=== PATIENT | female | born 1970 | race African-American/Black ===

== ENCOUNTER 2016-12-17 12:18 | Emergency (ER) | payer OTHER ==
[~2016-12-17] VITALS: Ht 170.2 cm; Wt 98.6 kg
[~2016-12-17 12:18] MED LIST: AFRIN,GENASAL D15 ML BOTH NARES; ANTIVERT25 MG PO; BENZONATATE100 MG PO; COLACE100 MG PO; DICLOFENAC SODI75 MG; FLAGYL500 MG; FLEXERIL10 MG PO; LEVAQUIN500 MG PO; LYRICA150 MG PO; MECLIZINE HCL25 MG PO; MELOXICAM7.5 MG PO; MOTRIN800 MG PO; NAPROSYN500 MG PO; NAPROXEN500 MG PO; NOHOMEMEDS; NORCO 5/3251 TABLET PO; OMEPRAZOLE40 M1 PO; PREDNISONE20 MG PO; PRILOSEC40 MG PO; PRINIVIL5 MG PO; ROBITUSSIN AC,T10 ML PO; TYLENOL REGULA325 MG PO; ULTRAM50 MG PO; VALIUM5 MG PO; VICODIN,LORT1 TABLET PO; ZANTAC150 MG PO; ZITHROMAX Z-PA250 MG PO; ZYRTEC10 M2 PO; naproxen
[2016-12-17] MEDS ORDERED: SUDAFED 12-HOU120 MG PO (12:49)
[2016-12-17 12:59] VITALS: BP 116/80
== END 2016-12-17 13:15 | disposition home or self-care (01) ==
LOC: EME 12:18
DX: J32.9 Chronic sinusitis, unspecified (principal); R05 Cough; I10 Essential (primary) hypertension
CPT/HCPCS: 99281; 99283

== ENCOUNTER 2017-08-10 14:05 | Emergency (ER) | payer OTHER ==
[~2017-08-10] VITALS: Ht 170.2 cm; Wt 99.4 kg
[~2017-08-10 14:05] MED LIST changes: +SUDAFED 12-HOU120 MG PO
[2017-08-10] MEDS ORDERED: AMOXICILLIN500 M1 PO (16:29)
[2017-08-10] MEDS ORDERED: MUCINEX1200 MG PO (16:29)
[2017-08-10 16:47] VITALS: BP 119/70
== END 2017-08-10 16:50 | disposition home or self-care (01) ==
LOC: EME 14:05
DX: J01.00 Acute maxillary sinusitis, unspecified (principal); I10 Essential (primary) hypertension; K21.9 Gastro-esophageal reflux disease without esophagitis
CPT/HCPCS: 99281; 99284

== ENCOUNTER 2017-12-23 01:37 | Emergency (ER) | payer OTHER ==
[~2017-12-23] VITALS: Ht 170.2 cm; Wt 93.8 kg
[~2017-12-23 01:37] MED LIST changes: +AMOXICILLIN500 M1 PO; +MUCINEX1200 MG PO
[2017-12-23] MEDS ORDERED: NEURONTIN100 MG PO (02:22)
[2017-12-23] MEDS ORDERED: MELOXICAM15 MG PO (02:22)
[2017-12-23 02:59] VITALS: BP 142/88
== END 2017-12-23 03:00 | disposition home or self-care (01) ==
LOC: EME 01:37
PROVIDERS: Emergency Medicine
DX: R51 Headache (principal); I10 Essential (primary) hypertension; K21.9 Gastro-esophageal reflux disease without esophagitis
CPT/HCPCS: 82948; 99281; 99284

== ENCOUNTER 2018-03-01 21:06 | Emergency (ER) | payer OTHER ==
[~2018-03-01] VITALS: Ht 170.2 cm; Wt 94.5 kg
[~2018-03-01 21:06] MED LIST changes: +MELOXICAM15 MG PO; +NEURONTIN100 MG PO
[2018-03-01 21:43] LABS: HEMATOCRIT 31.7 % (36.0-46.0); HEMOGLOBIN 10.7 G/DL (11.9-15.5); MCH 29.8 PG (29.0-34.0); MCHC 33.8 G/DL (30.0-36.0); MCV 88.3 FL (83-99); PLATELET COUNT 305 K/uL (156-360); RBC DIS.WIDTH-CV 13.2 % (11.8-14.6); RBC DIS.WIDTH-SD 43.3 % (39-53); RED BLOOD COUNT 3.59 M/uL (3.80-5.20); WHITE BLOOD COUNT 5.7 K/uL (4.1-10.2)
[2018-03-01 21:52] LABS: CHLORIDE 109 mEq/L (99-109); POTASSIUM 3.6 mEq/L (3.7-5.4); SODIUM 138 mEq/L (136-147)
[2018-03-01 21:53] LABS: PTT 29.8 SEC (25-37)
[2018-03-01 21:54] LABS: GLUCOSE 171 mg/dL (70-99)
[2018-03-01 21:55] LABS: TOTAL PROTEIN 6.5 g/dL (6.4-8.3)
[2018-03-01 21:56] LABS: TOTAL BILIRUBIN 0.4 mg/dL (0.0-1.0)
[2018-03-01 21:58] LABS: ALKALINE PHOSPHATASE 65 IU/L (3-129); CREATININE 1.1 mg/dL (0.6-1.3); GFR ESTIMATE (CALCULATED) > 59 mL/min/
[2018-03-01 21:59] LABS: UREA NITROGEN (BUN) 14 mg/dL (9-23)
[2018-03-01 22:00] LABS: AST (GOT) 14 IU/L (2-34)
[2018-03-01 22:01] LABS: ALT (GPT) 14 IU/L (3-49)
[2018-03-01 22:16] LABS: APPEARANCE CLEAR ((CLEAR)); BILIRUBIN NEGATIVE; BLOOD NEGATIVE; COLOR YELLOW ((YELLOW)); GLUCOSE (STRIP) NEGATIVE; KETONES NEGATIVE; LEUKOCYTES NEGATIVE; NITRITE NEGATIVE; PROTEIN (STRIP) NEGATIVE; SPECIFIC GRAVITY 1.031 (1.000-1.030); UCUL ADDED? NO
[2018-03-01 22:20] LABS: INTER. NORMALIZED RATIO 1.1
[2018-03-01 22:26] LABS: QUANTITATIVE HCG < 4.0 MIU/ML
[2018-03-01] MEDS ORDERED: CIPRO500 MG PO (23:53)
[2018-03-01] MEDS ORDERED: FLAGYL500 MG PO (23:53)
[2018-03-02 00:20] VITALS: BP 131/88
== END 2018-03-02 00:22 | disposition home or self-care (01) ==
LOC: EME 21:06
PROVIDERS: Physician Assistant
DX: K62.89 Other specified diseases of anus and rectum (principal); D64.9 Anemia, unspecified; I10 Essential (primary) hypertension; K21.9 Gastro-esophageal reflux disease without esophagitis
CPT/HCPCS: 74177; 80053; 81003; 84702; 85027; 85610; 85730; 86850; 86900; 86901; 99281; 99284; J7030